=== PATIENT | male | born 1980 | race Caucasian/White ===

== ENCOUNTER 2017-10-06 09:07 | Emergency (ER) | payer OTHER ==
[~2017-10-06] VITALS: Ht 188 cm; Wt 136.1 kg
[~2017-10-06 09:07] MED LIST: METF500T PO; SITA100T8 PO
[2017-10-06 09:19] VITALS: BP 123/75
--- NOTE | 2017-10-06 09:30 | NUR ---
PT. ARRIVED TO ED WITH C/O NON RADIATING L LOWER BACK FLANK PAIN X 2 DAYS OF 11/08. VSS, EVEN , UNLABORED RESPIRATIONS, DENIES ANY N/V/D AT THIS TIME. PT.IS ALERT ABND ORIENTED X 4 WITH STEADY GAIT , HAS NOT HAD ANY URINARY COMPLAINTS OR CHANGES, HAS NO MEDICAL ALLERGIES. SKIN IS WARM AND DRY, WILL CONTINUE TO MONITOR. . NOTIFIED
[2017-10-06] MEDS ORDERED: GLYCOPYRROLATE 0.2 MG/ML VIAL IM ONE (09:45)
[2017-10-06] MEDS ORDERED: KETOROLAC 60 MG/2 ML VIAL IM ONE (09:45)
--- NOTE | 2017-10-06 10:05 | NUR ---
PT. TAKEN FOR CT SCAN
--- NOTE | 2017-10-06 10:15 | NUR ---
PT. 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
[2017-10-06 10:32] LABS: APPEARANCE,URINE CLEAR (CLEAR); BILIRUBIN,URINE NEGATIVE (NEGATIVE); BLOOD, URINE NEGATIVE (NEGATIVE); COLOR,URINE YELLOW (YELLOW); LEUKOCYTE ESTERASE ,URINE NEGATIVE (NEGATIVE); NITRITE, URINE NEGATIVE (NEGATIVE); UGLUCOSE NEGATIVE (NEGATIVE)
[2017-10-06 10:38] LABS: BARBITURATE, URINE NEG. ng/ml (NEG <=200); BENZODIAZEPINE, URINE NEG. ng/mL (NEG <=200); CANNABINOID, URINE NEG. ng/mL (NEG <=50); COCAINE, URINE NEG. ng/mL (NEG <=300); OPIATE, URINE NEG. ng/mL (NEG <=2000); PHENCYCLIDINE SCREEN,URINE NEG. ng/mL (NEG <=25)
[2017-10-06 11:40] VITALS: BP 126/78
--- NOTE | 2017-10-06 11:40 | NUR ---
Patient discharged with v/s stable. Written and verbal after care instructions given and explained. Patient alert, oriented and verbalized understanding of instructions. Ambulatory with steady gait. All questions addressed prior to discharge. ID band removed. Patient advised to follow up with PMD. Rx of VOLTAREN XR given. Patient educated on indication of medication including possible reaction and side effects. Opportunity to ask questions provided and answered.
== END 2017-10-06 11:40 | disposition home or self-care (01) ==
LOC: MED 09:07
DX: K57.90 Diverticulosis of intestine, part unspecified, without perforation or abscess without bleeding (principal); E11.9 Type 2 diabetes mellitus without complications; I10 Essential (primary) hypertension
CPT/HCPCS: 74176; 80305; 81003; 82948; 96372; 99285; J1885; J3490

== ENCOUNTER 2019-08-14 09:26 | Emergency (ER) | payer OTHER ==
[~2019-08-14] VITALS: Ht 188 cm; Wt 136.1 kg
--- NOTE | 2019-08-14 09:30 | NUR ---
PATIENT AMBULATED WITH STEAY GAIT TO BED 1.
[2019-08-14 09:38] VITALS: BP 128/80
[2019-08-14] MEDS ORDERED: KETOROLAC 30 MG/ML VIAL IVP ONE (09:50)
--- NOTE | 2019-08-14 09:50 | NUR ---
39 Y/O MALE PRESENTS WITH CHEST PAIN X1 WEEK. SHARP, 6/10, NON RADIATING. PT BELIEVED IT WAS WORK RELATED BUT HAS NOT GOTTEN ANY BETTER. DENIES SOB. RESP EVEN AND UNLABORED.. LUNG SOUNDS CLEAR IN BILAT LOBES. AAOX3 .DENIES ANY RECENT ILLNESS. DENIES N/V/D. CAP REFILL <3. VSS. PMH: DM, HTN NKA
[2019-08-14 10:07] LABS: BASOPHILS % (AUTO) 0.4 % (0.0-2.0); EOSINOPHILS # (AUTO) 0.2 K/uL (0-0.4); EOSINOPHILS % (AUTO) 2.1 % (0.0-4.0); HEMOGLOBIN 14.2 g/dL (12.0-18.0); LYMPHOCYTES # (AUTO) 2.4 K/uL (2.0-11.5); LYMPHOCYTES % (AUTO) 30.7 % (20.5-51.1); MEAN CORPUSCULAR HEMOGLOBIN 29 pg (27-31); MEAN CORPUSCULAR HGB CONC 33 g/dL (33-37); MEAN CORPUSCULAR VOLUME 86.3 fL (80-94); MONOCYTES # (AUTO) 0.5 K/uL (0.8-1.0); MONOCYTES % (AUTO) 5.8 % (1.7-9.3); NEUTROPHILS # (AUTO) 4.7 K/uL (1.8-7.7); PLATELET COUNT (AUTO) 246 K/uL (140-450); RED BLOOD CELL COUNT(AUTO) 4.99 MIL/uL (4.20-6.10); WHITE BLOOD COUNT (AUTO) 7.8 K/uL (4.8-10.8)
[2019-08-14 10:27] LABS: ALBUMIN 3.6 g/dL (3.4-5.0); CARBON DIOXIDE 27.1 mmol/L (21-32); CREATININE 0.8 mg/dL (0.6-1.3); POTASSIUM 4.1 mmol/L (3.5-5.1); TOTAL BILIRUBIN 0.3 mg/dL (0.0-1.0)
[2019-08-14 12:27] VITALS: BP 132/78
== END 2019-08-14 12:28 | disposition home or self-care (01) ==
LOC: MED 09:26
DX: R07.9 Chest pain, unspecified (principal); E11.9 Type 2 diabetes mellitus without complications; I10 Essential (primary) hypertension; Z79.899 Other long term (current) drug therapy; Z79.84 Long term (current) use of oral hypoglycemic drugs
CPT/HCPCS: 36415; 71045; 80053; 83880; 84484; 85025; 93005; 96374; 99285; J1885; Q0092